=== PATIENT | female | born 1965 | race Caucasian/White ===

== ENCOUNTER 2019-11-18 06:38 | Emergency (ER) | payer OTHER, SELFPAY ==
[2019-11-18 06:44] VITALS: PULSE 69; RESP 16; TEMP 36.7; O2SAT 98; BMI 36.5
--- NOTE | 2019-11-18 07:00 | ED_ITS ---
HPI - Extremity Injury (Lower) General: Chief Complaint: Extremity Injury, Lower Stated Complaint: right foot pain Time Seen by Provider: 11/18/19 06:56 Source: patient Mode of arrival: ambulatory Limitations: no limitations History of Present Illness: HPI Narrative: Patient is a 54-year-old female who presents to ED today with complaint of right foot pain. Patient tells me jessy [email or web address] this morning while going down some stairs the foot got caught causing her toes to curl under her foot. Patient has been ambulatory on the extremity but with pain. She is complaining of a slight deformity to her fourth digit. No actual fall or other injuries sustained. MD complaint: foot injury Onset (ago): hour(s) Place: home Severity: mild Exacerbating factors: weight bearing, movement and palpation Associated symptoms: Reports no associated symptoms Other symptoms: none Review of Systems Musc: Reports: extremity pain (R foot-mainly 4-5 digits ) Neuro: Denies: numbness in extremities or sensory changes Physical Exam Const: COMMON NORMALS: no acute distress, average body habitus, patient oriented x3, no limitations, healthy appearing, alert and well nourished Extremity: GENERAL: Yes normal exam except as noted OTHER: TTP R 4-5 digits; slight deformity to 4th digit Neuro: COMMON NORMALS: patient oriented x3, moves all extremities, no focal motor deficits and no sensory deficits noted SENSORIUM/ORIENTATION: Yes alert Skin: COMMON NORMALS: no rashes or lesions noted GENERAL SKIN EXAM: no rashes or lesions noted Course Vital Signs: Vital signs: Vital Signs Temperature 98.0 F 11/18/19 06:44 Pulse Rate 62 11/18/19 07:48 Respiratory Rate 17 11/18/19 07:48 Blood Pressure 159/76 11/18/19 07:48 Pulse Oximetry 98 11/18/19 07:48 MDM - Extremity Injury (Lower) MDM Narrative: Medical decision making narrative: pt is from out of town; states they will be traveling back to [place] in 2 days; recommend orthopedic/podiatry followup when they return; she will be placed in surgical hard soled shoe Imaging Data^: XR R foot: My impression: non-displaced proximal phalanx fxs of 4-5 digits Radiologist's impression: [facility] [address] [place] [address] XRay Report Signed Patient: Temitope Torres Unit #: [id number] : [id number] Age/Sex: 54 / F ADM Date: 11/18/19 Loc: ER Room/Bed: Attending Dr: Ordering Provider/Ordering MD: Laurie Woodson Date of Service: 11/18/19 Procedure(s): XR foot RT min 3V* [id number] Accession Number(s): [id number] Report Number: [id number] PROCEDURE INFORMATION: Exam: XR Right Foot Complete Exam date and time: 11/18/2019 7:11 AM Age: 54 years old Clinical indication: Injury or trauma; Fall; Initial encounter; Blunt trauma; Foot; Right; Injury date: 11/17/19; Patient HX: 4th-5th toe pain; Additional info: Injury/pain TECHNIQUE: Imaging protocol: XR Right foot. Views: 3 or more views. COMPARISON: No relevant prior studies available. FINDINGS: Bones/joints: Calcaneal spur. Mild degenerative arthritis of IP joints. Transverse fracture proximal shaft proximal phalanx 5th digit. Soft tissues: Transverse fracture proximal shaft of proximal phalanx 4th digit with surrounding soft tissue edema of the forefoot laterally. XR/XR foot RT min 3V* [id number] IMPRESSION: Acute transverse fractures proximal phalanges 4th and 5th digits. Dictated By: Judith Briscoe DO Signed By: Judith Briscoe DO Signed Date/Time: 11/18/19 0756 DD/ 0755 Discharge Plan Discharge Patient Disposition: Home Clinical Impression: Closed fracture of proximal phalanx of toe Condition: Stable Discharge Orders: Discharge Order (Routine); Ordered 11/18/19 Ordered By: Laurie Woodson Patient Instructions: Fractures - Phalanx (Toe), Toe Fracture (ED) Activity Restrictions/Additional Instructions: As discussed you need to wear your surgical hard soled shoe or similar hard soled shoe at all times. When you get home to [place] you need to contact an orthopedic or podiatry provider (depending on your insurance he may have to go through primary care for a referral) for follow-up. Discharge Date/Time: 11/18/19 07:48 Coding Level of Care Code ED Senior Asset Manager for Chg Fwd Exam Expanded Problem Focused
[2019-11-18 07:48] VITALS: BP 159/76; PULSE 62; RESP 17; O2SAT 98
== END 2019-11-18 07:48 | disposition home or self-care (01) ==
PROVIDERS: Emergency Provider Physician Assistant
DX: S92.514A Nondisplaced fracture of proximal phalanx of right lesser toe(s), initial encounter for closed fracture (principal); X58.XXXA Exposure to other specified factors, initial encounter
CPT/HCPCS: 12345; 73630; 99281; 99282